=== PATIENT | male | born 1995 | race African-American/Black ===

== ENCOUNTER 2022-02-10 09:36 | Emergency (ER) | payer BC, MEDICAID, OTHER ==
[~2022-02-10] VITALS: Ht 190.5 cm; Wt 136.1 kg
[2022-02-10] MEDS ORDERED: KETOROLAC TROMETH 30 MG/ML 1ML VIAL IM ONE (11:15)
[2022-02-10] MEDS ORDERED: CYCLOBENZAPRINE HCL 10 MG TAB PO ONE (11:15)
[2022-02-10 13:58] VITALS: BP 101/64
== END 2022-02-10 14:00 | disposition home or self-care (01) ==
LOC: ER 09:36
DX: T14.8XXA Other injury of unspecified body region, initial encounter (principal); R10.12 Left upper quadrant pain; J45.909 Unspecified asthma, uncomplicated; V49.9XXA Car occupant (driver) (passenger) injured in unspecified traffic accident, initial encounter; Y93.89 Activity, other specified; Y92.410 Unspecified street and highway as the place of occurrence of the external cause; Y99.8 Other external cause status
CPT/HCPCS: 71045; 72170; 96372; 99284; J1885